=== PATIENT | female | born 1960 | race Caucasian/White ===

== ENCOUNTER 2017-01-27 10:14 | Day surgery (SDC) | payer MEDICARE, BC ==
--- NOTE | 2017-01-27 07:45 | History and Physical Report ---
DATE: 01/27/2017. CHIEF COMPLAINT: This is a patient with a history of an intractable lumbar radiculitis. HISTORY OF PRESENT ILLNESS: She had a spinal cord stimulator trial with 75 to 90 percent pain control. Due to the failure of all other therapies and the success of the trial, she presents today for implantation of a permanent system. PAST MEDICAL HISTORY: Asthmatic bronchitis, hypertension. PAST SURGICAL HISTORY: Breast surgery, gallbladder surgery, hand surgery. MEDICATIONS ON ADMISSION: To be provided. ALLERGIES: Penicillin and sulfa. SOCIAL HISTORY: Noncontributory. FAMILY HISTORY: Diabetes, thyroid disease. REVIEW OF SYSTEMS: The patient is appropriate and in no acute distress. The remainder of the systems review shows glasses, headaches, sleep disturbance, blood pressure problems, cardiac murmur, peripheral edema, bladder dysfunction, reflux, degenerative arthritis, fibromyalgia. PHYSICAL EXAMINATION: General: Height is 5 feet, 1 inch. Weight is 250 pounds. Vital Signs: Not available. HEENT: Within normal limits. Lungs: Clear. Heart: Regular rate and rhythm. Abdomen: Nontender. Musculoskeletal: Examination of the musculoskeletal system shows diffuse tenderness throughout the lumbar spine. Range of motion causes pain into both lower extremities. Ambulation: No assistive device utilized. Neurologic: Cranial nerves are intact. IMPRESSION: LUMBAR RADICULITIS, ICD-10 CODE M54.16 AND M54.17. PLAN: The patient is here for implantation of a permanent spinal cord stimulator after the failure of all therapy and the success of the trial. The procedure will be considered outpatient, although an overnight stay will be evaluated. The potential risks, side effects, and complications have been carefully reviewed and discussed including dural puncture, spinal headache, nerve root trauma, spinal cord injury, and paralysis. She has consented and has had the information provided through the weapons officer. This also carefully outlines and discusses the side effects and complications. The procedure will be considered outpatient, although an overnight stay will be evaluated. JAMEL VASQUEZ D.O. Date & Time cc: Adele Nolasco M.D. JOB NUMBER: [id number] MTDD
[2017-01-27] MEDS ORDERED: PROPOFOL 10 MG/ML VIAL IV ONE (14:00)
[2017-01-27] MEDS ORDERED: MORPHINE SULFATE 5 MG/ML PFS IVP ONE ×2 (14:00→16:48)
[2017-01-27] MEDS ORDERED: FENTANYL PF 100MCG/2ML VIAL IV ONE (14:00)
[2017-01-27] MEDS: MECLIZINE 25 MG TABLET PO ONE (14:11)
[2017-01-27] MEDS: CLINDAMYCIN 600MG/50ML PREMIX 600 MG/50 ML BAG IVPB ONE (14:11)
[2017-01-27] MEDS: FAMOTIDINE 20MG TABLET PO ONE (14:11)
[2017-01-27] MEDS: ACETAMINOPHEN 1,000 MG/100 ML BTL IV ONE (14:11)
[2017-01-27] MEDS ORDERED: HYDROCODONE/APAP 7.5/325MG TABLET PO PRN ×2 (14:14)
[2017-01-27] MEDS ORDERED: OXYCODONE/APAP 10MG-325MG TABLET PO PRN ×2 (14:14)
--- NOTE | 2017-01-27 16:09 | Operative Note - [place] ---
DATE OF SURGERY: 01/27/17 PREOPERATIVE DIAGNOSIS: INTRACTABLE LUMBAR RADICULITIS, ICD-10 CODE = M54.16 AND M54.17. OPERATION: 1. FLUOROSCOPICALLY-GUIDED EPIDURAL ACCESS T11/12 AND T12/L1 RIGHT OF THE MIDLINE USING CURVED ACCESS EPIMED NEEDLES WITH [id number]. 2. PLACEMENT OF SPINAL CORD STIMULATOR LEAD 1, A [employer] OCTAPOLAR WITH 8 ELECTRODES, MRI COMPATIBLE, POSITIONED FROM T11/12 TO T6 LEFT OF THE MIDLINE. 3. COMPLEX PROGRAMMING LEAD 1, 20 MINUTES. 4. FLUOROSCOPICALLY-GUIDED PLACEMENT OF SPINAL CORD STIMULATOR LEAD 2 THROUGH THE EPIDURAL ACCESS 12/ UNDER IMAGING POSITIONED RIGHT OF THE MIDLINE T6, [employer] OCTAP[employer]AR 8 ELECTRODES, MRI COMPATIBLE. 5. COMPLEX PROGRAMMING LEAD 2, 20 MINUTES. 6. INCISION, SUBCUTANEOUS DISSECTION, AND ANCHORING OF LEAD 1 AND LEAD 2 TO SUPRASPINOUS FASCIA USING [employer] LOCKING ANCHOR. 7. INCISION, SUBCUTANEOUS DISSECTION, AND CREATION OF A SUBCUTANEOUS POUCH AT RIGHT POSTERIOR GLUTEAL MARGIN FOR PLACEMENT OF GENERATOR IDENTIFIED [employer] PROGRAMMABLE RECHARGEABLE. 8. TUNNELING BETWEEN POUCHES, PLACEMENT OF EXTERNAL PORTION OF LEAD 1 AND LEAD 2 INTO GENERATOR POUCH, EACH LEAD INTERFACED TO GENERATOR. 9. PLACEMENT OF GENERATOR INTO POUCH SECURED TO POSTERIOR FASCIA USING NONABSORBABLE SUTURE. 10. PLACEMENT OF LEADS INTO POUCH. CLOSURE OF BOTH INCISIONS VICRYL FOR FASCIA AND SUBCUTICULAR VICRYL FOR SKIN. DERMABOND CLOSURE. 11. COMPLEX RECOVERY ROOM PROGRAMMING INTERNAL GENERATOR HOME USE, TWO STIMULATORS, 20 MINUTES. SURGEON: JAMEL VASQUEZ D.O. ANESTHESIA: LOCAL SEDATION. ANESTHESIA PROVIDER: O[place] CRNA. INDICATION: This patient presents with a history of a intractable lumbar radiculopathy. Due the failure of all therapies, a spinal cord stimulator trial was conducted with 75-90% pain control. With the success of the trial and failure of other therapies, and by her request, she is here for implantation of a permanent system. PROCEDURE: Intravenous line, vital sign monitoring, IV sedation, prepped, draped sterile technique, patient position prone. Sterile prep, sterile technique. The epidural interspace right of the midline 1112 and 07/16 were both infiltrated with local using two separate curved access Epimed needles with [id number], the epidural space was accessed. At 11/12, spinal cord stimulator lead 1, a [employer] Octapolar 8 electrodes MRI compatible was then positioned T6 left of midline. With the epidural access at 07/16, similar technique, spinal cord stimulator lead 2, also a [employer] Octapolar 8 electrodes MRI compatible, positioned right of the midline at T6. Complex programming of lead 1 over 20 minutes followed by complex programming of lead 2 over 20 minutes ultimately resulting in patterns of stimulation across the back and into the legs. Patient indicating we were in all of the right areas of the pain. She was then re-sedated. The skin above and below the needles infiltrated, incision made, and subcutaneous dissection was conducted to the supraspinous fascia. Each of the two leads was then anchored to the fascia with anchoring device Locking-type, Datab[employer]. With the leads anchored and using nonabsorbable suture, the skin at the right posterior/ superior gluteal margin infiltrated, incision made and subcutaneous dissection was conducted to form a pouch of suitable size and depth for the generator identified as [employer] Programmable Rechargeable. Complex programming had been performed using the two leads; each lead for 20 minutes re- establishing stimulation of pain control consistent with the trial and the areas of pain. The leads were then tunneled into the generator pouch and then each lead was interfaced to the generator directly. Antibiotic irrigation and Bovie for hemostasis. The generator was secured to the fascia in the pouch with a nonabsorbable suture then placed into the pouch. The leads were then coiled and placed into the midline pouch and then both incisions were closed Vicryl for fascia and running subcuticular Vicryl for skin. A Dermabond closure to approximate the edges of the wound. She was then transported to the Recovery Room stable showing no side-effects from the procedure or the sedation. When fully awake and alert, complex programming of the two leads performed re- establishing stimulation and pain control to all of the appropriate areas. She was instructed on the use of the system, provided the information and error messaging,and then prepared for discharge. DISCHARGE INSTRUCTIONS: 1. The sites will remain clean and dry. No showering or bathing in any way that would disrupt the dressings. If that happens, contact the clinic. 2. Standard medications resumed, including the antibiotic, Levaquin 500 mg once a day for 14 days. 3. She will be seen in the office in 5-7 days to evaluate the incisional sites. Until then, her activity levels should stay low and controlled. All side- effects should be reported to the clinic or go to a local Emergency Room. All other information provided, numbers to contact, problems given. She was then prepared for discharge. cc: Dr. Mccauely JOB NUMBER: [id number] MTDD
[2017-01-27] MEDS ORDERED: BUPIVACAINE 0.5% W/EPI MPF 30 ML VIAL IVP ONE (16:48)
[2017-01-27] MEDS ORDERED: CLINDAMYCIN 600MG/4 ML VIAL IV ONE (16:48)
[2017-01-27] MEDS ORDERED: LIDOCAINE 1% W/EPI 1:200,000 MPF 30ML SQ ONE (16:48)
--- NOTE | 2017-01-28 12:42 | RADIOLOGY REPORT ---
EXAM: THORACOLUMBAR SPINE, ONE VIEW HISTORY: SPINAL STIMULATOR IMPLANT. TECHNIQUE: An AP view of the mid and lower portions of the thoracic spine as well as the entire lumbar spine was obtained portably. FINDINGS: A dual lead interspinal stimulator is in place with the leads likely entering the spinal canal near the T12-L1 level. The lead tips are at the T6 level. The spinal stimulator generator projects at the right mid to lower flank level. There are degenerative changes scattered throughout the visualized spine. No destructive bone lesion. IMPRESSION: DUAL LEAD INTERSPINAL STIMULATOR IN PLACE, DISCUSSED ABOVE. JOB NUMBER: [id number] MTDD
== END 2017-01-27 15:58 | disposition home or self-care (01) ==
LOC: SUR 10:14 → MEDSURG 13:31 → SUR 15:58
PROVIDERS: ATTEND Pain Medicine Interventional Pain Medicine
DX: M54.16 Radiculopathy, lumbar region (principal); M54.17 Radiculopathy, lumbosacral region; I10 Essential (primary) hypertension; E78.00 Pure hypercholesterolemia, unspecified
CPT/HCPCS: 63685; 63650 ×2; 00300; 95972; 72020; J3010; J2270